=== PATIENT | female | born 1950 | race Caucasian/White ===

== ENCOUNTER 2019-04-12 22:36 | Inpatient (IN) ==
[2019-04-13] MEDS ORDERED: Naloxone 0.4 MG/ML INJ IVP PRN (06:36)
[2019-04-13] MEDS ORDERED: Acetaminophen IV 500 MG/50 ML INFUS..BTL IVPB ONE (06:39)
--- NOTE | 2019-04-13 06:44 | Internal Med History&Physical ---
Date of Encounter: 04/13/19 Time of Encounter: 05:45 Internal Medicine - H&P: HPI Chief complaint: Fall Admitted From: Hospital to Hospital Transfer Plans for Post Hospital Care: Home History of present illness: Ms. Grove is a 68 year old female with past medical history significant for osteoporosis and glaucoma who presents as hospital transfer from [facility] ER where she presented following a mechanical fall where she landed on her right side and had pain in the area of her right hip. Denies losing consciousness, striking head, or anticoagulation use. Reports she was walking and her right knee gave out causing her to fall and she landed on her right side. Following fall had immediate pain to her right hip but has been able to continue to bear weight. Pain is exacerbated with movement and improved with rest. Sending ER obtained a CT of the right hip which showed right femoral neck fracture with impacted fragments, minimal soft tissue changes along the fracture margin favoring a subacute or chronic time course recommending MRI if pain is ongoing along with a chronic appearing right-sided pubic ramus fracture and chronic L4 compression fracture. Sending ER also obtained labs including CBC, CMP, and coags which all were unremarkable. Patient currently denies any headache, numbness, tingling, chest pain, shortness breath, abdominal pain, bowel or bladder changes. Reports improvement with pain with rest and pain medications received at sending ER. Reports she follows regularly with her PCP and orthopedic provider in [place] where she lives part of the year alternating with [place]. Past Med Surg Social Fam HX - Past Medical History Medical history: glaucoma, osteoporosis Psychiatric history: no psych history - Past Surgical History Surgical History: appendectomy, cataract Additional surgical history: knee x 2. elbows x2. right wrist - Social History Smoking Status: Former smoker Alcohol use: none Drug use: none - Family History Mother Living Status: Age at : 82 Father Living Status: Age at : 65 Cause of : cardiac Internal Medicine - H&P: Meds Cholecalciferol (D-3) [Vitamin D] 10,000 unit PO QWEEK 04/13/19 [History] Dorzolamide 1 BOTH EYES BID 04/13/19 [History] Fish Oil 1,200 mg Fish Oil 1 mg PO QWEEK 04/13/19 [History] Pilocarpine 2% OPTH 1 BOTH EYES BID 09/04/19 [History] Allergy/AdvReac Type Severity Reaction Status Date / Time Penicillins Allergy Unknown See Verified 04/13/19 01:56 Comments loratadine [From Claritin-D] Allergy See Verified 04/13/19 01:54 Comments pseudoephedrine Allergy See Verified 04/13/19 01:54 [From Claritin-D] Comments meperidine [From Demerol] AdvReac Dizziness Verified 04/13/19 01:55 All Systems PM: A 10-system review of systems was performed and is negative for pertinent findings except as documented above in the HPI. - Constitutional Vitals: Temp Pulse Resp BP Pulse Ox 98.6 F 96 16 134/81 95 04/13/19 01:47 04/13/19 01:47 04/13/19 01:47 04/13/19 01:47 04/13/19 01:47 Exam: General: Alert and oriented. Skin:Normal color, no rash, no lesions. HEENT:Pupils constricted reportedly secondary to her eye drops. Cardiovascular:Normal S1 & S2, no rubs, murmurs or gallops. No JVD. Pulse regular. Lungs:Breath sounds decreased, no wheezes or crackles. Abdomen:Soft, non-tender, no rigidity. Extremities:No deformity, edema, joint swelling or clubbing. Tenderness noted to right hip, distal PMS intact. Neurological:Normal cognition and motor skills. Pulses:Carotid and radial pulses normal +2. Rest of the physical exam is non contributory. - Assessment and Plan (1) Fall Current Visit: Yes Status: Acute Assessment and plan: Reports she was walking and her right knee gave out causing her to fall and landed on her right side. Following fall had immediate pain to her right hip but has been able to continue to bear weight. Denies losing consciousness, striking head, or anticoagulation use. Sending ER obtained a CT of the right hip which showed right femoral neck fracture with impacted fragments, minimal soft tissue changes along the fracture margin favoring a subacute or chronic time course recommending MRI if pain is ongoing along with a chronic appearing right-sided pubic ramus fracture and chronic L4 compression fracture. Patient reports known previous right pubic ramus fractures from previous fall. Sending ER spoke with on-call orthopedic surgeon Dr. Graham who agreed to see patient in consult. Pain control with PRN pain medications. NPO. Fall precautions ordered. Qualifiers: Encounter type: initial encounter Qualified Code(s): W19.XXXA - Unspecified fall, initial encounter (2) Femoral neck fracture Current Visit: Yes Status: Acute Assessment and plan: Subacute or chronic according to sending ER right hip CT. Plan as stated above. Qualifiers: Encounter type: initial encounter Fracture type: closed Laterality: right Qualified Code(s): S72.001A - Fracture of unspecified part of neck of right femur, initial encounter for closed fracture (3) Compression fracture of L4 vertebra Current Visit: Yes Status: Chronic Assessment and plan: Chronic according to sending ER right hip CT. Plan as stated above. Qualifiers: Qualified Code(s): S32.040A - Wedge compression fracture of fourth lumbar vertebra, initial encounter for closed fracture (4) Pubic ramus fracture Current Visit: Yes Status: Chronic Assessment and plan: Chronic according to sending ER right hip CT. Patient reports known previous right pubic ramus fractures from previous fall. Plan as stated above. Qualifiers: Qualified Code(s): S32.599A - Other specified fracture of unspecified pubis, initial encounter for closed fracture (5) Glaucoma Current Visit: Yes Status: Chronic Assessment and plan: Continue home medications once verified. Qualifiers: Qualified Code(s): H40.9 - Unspecified glaucoma - Time Spent With Patient Total time spent is greater than 50% in coordination of care (as documented) at patient's floor/unit and/or counseling patient:
--- NOTE | 2019-04-13 07:26 | Orthopedic Consult Note ---
Date of Encounter: 04/13/19 Time of Encounter: 07:24 Assessment and Plan (1) Femoral neck fracture Current Visit: Yes Status: Acute Considerable and discussion with the patient regarding the diagnosis. She has a valgus impacted subcapital right femoral neck fracture. My recommendation is for percutaneous screw fixation to stabilize the right hip to reduce the risk of displacement. The risks discussed included but were not limited to stiffness, bleeding, infection, blood clots, damage to neurovascular structures, tendons, ligaments, and bone. Also discussed was the risk of continued symptoms and possible need for further procedures. I did discuss the anesthesia risks including stroke, heart attack, and . I did discuss the reasonable, foreseeable postoperative course with the patient. The patient did wish to proceed and consent was obtained. She is currently on the OR schedule for tomorrow. I have reviewed each of the pertinent components of this chart and any other pertinent medical component(s) including but not limited to pertinent application of the chief complaint, history of present illness, current medication, medical history, allergies, family history, medical history, surgical history, social history, review of systems, vital signs, and any other portion of the pertinent patient medical record directly or indirectly involved with this patient care that is pertinent based on my medical decision process. ANGELO Miller Qualifiers: Encounter type: initial encounter Fracture type: closed Laterality: right Qualified Code(s): S72.001A - Fracture of unspecified part of neck of right femur, initial encounter for closed fracture History of Present Illness HPI: Ms. Grove is a 68 year old female currently admitted to the hospitalist. She had a mechanical fall yesterday and was seen and [place]. She is noted to have an impacted right femoral neck fracture seen on the CT scan. She was transferred to our facility for definitive management. She complains of isolated sharp pains to the right hip, worse with use and movement and better with rest. She has been able to ambulate with pain. At baseline she is an unassisted community ambulator. She denies any other injuries. No numbness, tingling, or any other associated signs or symptoms or other modifying factors. Past Med Surg Social Fam HX - Past Medical History Medical history: glaucoma, osteoporosis Psychiatric history: no psych history - Past Surgical History Surgical History: appendectomy, cataract Additional surgical history: knee x 2. elbows x2. right wrist - Social History Smoking Status: Former smoker Alcohol use: none Drug use: none - Family History Mother Living Status: Age at : 82 Father Living Status: Age at : 65 Cause of : cardiac Medications and Allergies Cholecalciferol (D-3) [Vitamin D] 10,000 unit PO QWEEK 04/13/19 [History] Dorzolamide 1 BOTH EYES BID 04/13/19 [History] Fish Oil 1,200 mg Fish Oil 1 mg PO QWEEK 04/13/19 [History] Pilocarpine 2% OPTH 1 BOTH EYES BID 04/13/19 [History] Allergy/AdvReac Type Severity Reaction Status Date / Time Penicillins Allergy Unknown See Verified 04/13/19 01:56 Comments loratadine [From Claritin-D] Allergy See Verified 04/13/19 01:54 Comments pseudoephedrine Allergy See Verified 04/13/19 01:54 [From Claritin-D] Comments meperidine [From Demerol] AdvReac Dizziness Verified 04/13/19 01:55 All Systems Reviewed: Constitutional -The patient denies any fevers, chills, or feelings of illness Neurologic -The patient denies any numbness, tingling, or burning pains Physical Exam - Constitutional Vitals: Temp Pulse Resp BP Pulse Ox 98.6 F 96 16 134/81 95 04/13/19 01:47 04/13/19 01:47 04/13/19 01:47 04/13/19 01:47 04/13/19 01:47 Constitutional -Vitals reviewed -The patient is well developed and well nourished. -Mood is pleasant. -The patient is well groomed. Psychiatric -The patient is fully alert and oriented x 3. Respiratory: -Respiratory effort normal Abdomen: -Soft abdomen -Non tender -Non distended: Left upper extremity: -No deformities. The overlying skin is intact. No obvious signs of acute trauma. -No tenderness to palpation throughout. -No significant pain with passive motion of the shoulder, elbow, wrist, and fingers within the limits of the bed. -Able to make an "OK" sign, cross the index and long fingers, and extend the thumb. -Sensation grossly intact to light touch throughout the median, radial, and ulnar distributions. -Radial pulse is present; Fingers have good capillary refill. Right upper extremity: -No deformities. The overlying skin is intact. No obvious signs of acute trauma. -No tenderness to palpation throughout. -No significant pain with passive motion of the shoulder, elbow, wrist, and fingers within the limits of the bed. -Able to make an "OK" sign, cross the index and long fingers, and extend the thumb. -Sensation grossly intact to light touch throughout the median, radial, and ulnar distributions. -Radial pulse is present; Fingers have good capillary refill. Left lower extremity: -No deformities. The overlying skin is intact. No obvious signs of acute trauma. -No tenderness to palpation throughout. -No pain with passive motion of the hip, knee, ankle, and toes within the limits of the bed. -No pain with axial loading of the thigh. -Able to dorsiflex and plantarflex the ankle and toes. -Sensation is grossly intact to light touch throughout the sural, saphenous, superficial peroneal, and deep peroneal distributions. -Toes have good capillary refill. Right lower extremity: -No deformities. The overlying skin is intact. No obvious signs of acute trauma. -Tenderness over the right groin. -Significant right hip pain with any passive motion. -No pain with passive motion of the knee, ankle, and toes within the limits of the bed. -No pain with axial loading of the thigh. -Able to dorsiflex and plantarflex the ankle and toes. -Sensation is grossly intact to light touch throughout the sural, saphenous, superficial peroneal, and deep peroneal distributions. -Toes have good capillary refill. CT scan of the pelvis does show a subcapital valgus impacted right femoral neck fracture. Results - Labs Labs: All other labs normal.
[2019-04-13 08:00] LABS: Basophils % 0.7 %; Eosinophils # 0.1 K/mcL (0.0-0.6); Hematocrit 39.8 % (35.3-44.9); Hemoglobin 13.2 g/dL (11.5-15.4); Immature Granulocytes % 0.7 % (0-4); Lymphocytes # 0.6 K/mcL (0.6-4.6); Lymphocytes % 10.3 %; Mean Corpuscular HGB Conc 33.2 g/dL (31.6-35.5); Mean Corpuscular Hemoglobin 35.3 pg (28.0-33.3); Mean Corpuscular Volume 106.4 fL (83.0-100.0); Mean Platelet Volume 9.8 fL (9.4-12.4); Monocytes # 0.7 K/mcL (0.0-1.3); Neutrophils # 4.5 K/mcL (1.6-8.9); Platelet Count 224 K/mcL (140-400); Red Blood Count 3.74 M/mcL (3.82-4.97); Red Cell Distribution Width 13.8 % (11.5-14.5); Segmented Neutrophils % 76.3 %; White Blood Count 5.9 K/mcL (4.3-11.1)
[2019-04-13 08:23] LABS: BUN/Creatinine Ratio 34 (6-26); Blood Urea Nitrogen 20 mg/dL (8-23); Calcium 8.6 mg/dL (8.6-10.3); Carbon Dioxide 23 mEq/L (23-29); Chloride 105 mEq/L (98-107); Glucose 71 mg/dL (70-105); Osmolality,Calculated 287 (280-300); Sodium 138 mEq/L (136-145); eGFR For African Americans > 60 (> 60); eGFR For Non-African Americans > 60 (> 60)
--- NOTE | 2019-04-13 08:23 | Internal Med Progress Note ---
<RochelleCheyenne - Last Filed: 04/13/19 12:19> Hospitalist Progress Note - Encounter Date of Encounter: 04/13/19 Time of Encounter: 10:00 - Exam Vitals: Temp Pulse Resp BP Pulse Ox 99.5 F 92 14 153/91 96 04/13/19 08:41 04/13/19 08:41 04/13/19 08:41 04/13/19 08:41 04/13/19 08:41 - Assessment and Plan (1) Fall Current Visit: Yes Status: Acute (2) Femoral neck fracture Current Visit: Yes Status: Acute (3) Glaucoma Current Visit: Yes Status: Chronic (4) Compression fracture of L4 vertebra Current Visit: Yes Status: Chronic (5) Pubic ramus fracture Current Visit: Yes Status: Chronic - Time Spent with Patient Total time spent is greater than 50% in coordination of care (as documented) at patient's floor/unit and/or counseling patient: Internal Medicine: Result - Labs CBC & Chem 7: 04/13/19 07:45 04/13/19 07:45 Labs: Short CBC 04/13/19 Range/Units 07:45 WBC 5.9 (4.3-11.1) K/mcL Hgb 13.2 (11.5-15.4) g/dL Hct 39.8 (35.3-44.9) % Plt Count 224 (140-400) K/mcL Neutrophils # 4.5 (1.6-8.9) K/mcL BMP 04/13/19 07:45 Sodium 138 Potassium 4.0 Chloride 105 Carbon Dioxide 23 BUN 20 Creatinine 0.58 L Glucose 71 Calcium 8.6 - Attending Attestation I saw evaluated and examined this patient and reviewed objective data including labs and my medical decision-making was reviewed with the Resident Physician, Jax Cruz. I agree with the documented findings, disposition and treatment plan as described except to any changes set forth below. We independently had [id number] contact with the patient. Patient with right subcapital femoral neck fracture. Scheduled for surgery tomorrow. No prior cardiac history. Will obtain EKG to review for preop evaluation. Continue pain control and supportive care. <Jax Cruz I - Last Filed: 04/13/19 14:18> Hospitalist Progress Note - Encounter Date of Encounter: 04/13/19 - Subjective Interval History: Today patient is seen and examined , she is doing well , waiting for surgery tomorrow , pain in the right groin region . denies chest pain , SOB , N/V/D/C. denies fever, chills . - Exam Vitals: Temp Pulse Resp BP Pulse Ox 98.6 F 96 16 134/81 95 04/13/19 01:47 04/13/19 01:47 04/13/19 01:47 04/13/19 01:47 04/13/19 01:47 Exam: General: Alert and oriented. Skin:Normal color, no rash, no lesions. HEENT:Pupils constricted reportedly secondary to her eye drops. Cardiovascular:Normal S1 & S2, no rubs, murmurs or gallops. No JVD. Pulse regular. Lungs:Breath sounds decreased, no wheezes or crackles. Abdomen:Soft, non-tender, no rigidity. Extremities: Tenderness noted to right hip , pain with right hip motion , sensation and pulses intact in bilateral lower extremities Neurological:Normal cognition and motor skills. Pulses:Carotid and radial pulses normal +2. Rest of the physical exam is non contributory. - Assessment and Plan (1) Femoral neck fracture Current Visit: Yes Status: Acute Assessment and Plan: Patient presented with right hip pain after she fell down . CT scan of right hip : valgus impacted subcapital right femoral neck fracture. Ortho consulted and recommend : percutaneous screw fixation to stabilize the right hip to reduce the risk of displacement. patient will have surgery tomorrow EKG preoperative (2) Glaucoma Current Visit: Yes Status: Chronic Assessment and Plan: this is a chronic condition continue home med - Time Spent with Patient Total time spent is greater than 50% in coordination of care (as documented) at patient's floor/unit and/or counseling patient: Internal Medicine: Result - Labs CBC & Chem 7: 04/13/19 07:45 04/13/19 07:45 Labs: Short CBC 04/13/19 Range/Units 07:45 WBC 5.9 (4.3-11.1) K/mcL Hgb 13.2 (11.5-15.4) g/dL Hct 39.8 (35.3-44.9) % Plt Count 224 (140-400) K/mcL Neutrophils # 4.5 (1.6-8.9) K/mcL <Cheyenne Byrd - Last Filed: 04/13/19 12:19> (1) Fall Qualifiers: Encounter type: initial encounter Qualified Code(s): W19.XXXA - Unspecified fall, initial encounter (2) Femoral neck fracture Qualifiers: Encounter type: initial encounter Fracture type: closed Laterality: right Qualified Code(s): S72.001A - Fracture of unspecified part of neck of right femur, initial encounter for closed fracture (3) Glaucoma Qualifiers: Qualified Code(s): H40.9 - Unspecified glaucoma (4) Compression fracture of L4 vertebra Qualifiers: Qualified Code(s): S32.040A - Wedge compression fracture of fourth lumbar vertebra, initial encounter for closed fracture (5) Pubic ramus fracture Qualifiers: Qualified Code(s): S32.599A - Other specified fracture of unspecified pubis, initial encounter for closed fracture <Jax Cruz I - Last Filed: 04/13/19 14:18> (1) Femoral neck fracture Qualifiers: Encounter type: initial encounter Fracture type: closed Laterality: right Qualified Code(s): S72.001A - Fracture of unspecified part of neck of right femur, initial encounter for closed fracture (2) Glaucoma Qualifiers: Qualified Code(s): H40.9 - Unspecified glaucoma
[2019-04-13] MEDS ORDERED: Pilocarpine 2% OPTH 15 ML BOTTLE BOTH EYES SCH (15:00)
[2019-04-13] MEDS ORDERED: Dorzolamide OPTH 10 ML BOTTLE BOTH EYES SCH ×2 (15:00→21:00)
[2019-04-13] MEDS: traMADol 50 MG TABLET PO PRN (18:00)
[2019-04-13] MEDS: Pilocarpine 2% OPTH 15 ML BOTTLE BOTH EYES SCH (20:25)
[2019-04-13] MEDS: Dorzolamide/Timolol OPTH 10 ML BOTTLE BOTH EYES SCH (21:32)
[2019-04-14 04:46] LABS: Hematocrit 37.3 % (35.3-44.9); Hemoglobin 12.4 g/dL (11.5-15.4); Mean Corpuscular HGB Conc 33.2 g/dL (31.6-35.5); Mean Corpuscular Hemoglobin 35.7 pg (28.0-33.3); Mean Corpuscular Volume 107.5 fL (83.0-100.0); Mean Platelet Volume 9.7 fL (9.4-12.4); Platelet Count 203 K/mcL (140-400); Red Blood Count 3.47 M/mcL (3.82-4.97); Red Cell Distribution Width 13.8 % (11.5-14.5); White Blood Count 6.2 K/mcL (4.3-11.1)
[2019-04-14 05:00] LABS: INR 0.9; Prothrombin Time 10.6 Seconds (9.4-12.1)
[2019-04-14 05:06] LABS: BUN/Creatinine Ratio 42 (6-26); Blood Urea Nitrogen 24 mg/dL (8-23); Carbon Dioxide 24 mEq/L (23-29); Chloride 106 mEq/L (98-107); Glucose 104 mg/dL (70-105); Osmolality,Calculated 286 (280-300); Potassium 3.9 mEq/L (3.5-5.1); Sodium 136 mEq/L (136-145); eGFR For African Americans > 60 (> 60); eGFR For Non-African Americans > 60 (> 60)
[2019-04-14 05:16] LABS: Eosinophils # 0.4 K/mcL (0.0-0.6); Monocytes # 0.3 K/mcL (0.0-1.3); Neutrophils # 3.6 K/mcL (1.6-8.9); Platelet Estimate Normal (Normal); Reactive Lymphocytes Present (Not Present)
--- NOTE | 2019-04-14 07:48 | Orthopedics Progress Note ---
Date of Encounter: 04/14/19 Time of Encounter: 07:47 - Assessment and Plan (1) Femoral neck fracture Current Visit: Yes Status: Acute Qualifiers: Encounter type: initial encounter Fracture type: closed Laterality: right Qualified Code(s): S72.001A - Fracture of unspecified part of neck of right femur, initial encounter for closed fracture Subjective Interval history: S: Patient is seen today and has no complaints. O: Afebrile and vital signs are stable No deformities to the right hip and minimal tenderness to palpation and mild pain with axial loading of the right thigh. Neurovascularly intact distally A: Subcapital valgus impacted right femoral neck fracture P: The plan for today is percutaneous screw fixation of the right hip. The risks discussed included but were not limited to stiffness, bleeding, infection, blood clots, damage to neurovascular structures, tendons, ligaments, and bone. Also discussed was the risk of continued symptoms and possible need for further procedures. I did discuss the anesthesia risks including stroke, heart attack, and . I did discuss the reasonable, foreseeable postoperative course with the patient. The patient did wish to proceed and consent was confirmed. Objective Vital signs: Vital Signs Temp Pulse Resp BP Pulse Ox 04/14/19 07:27 98.9 F 92 15 147/81 94 04/14/19 03:00 98.7 F 83 16 122/64 93 04/13/19 22:36 98.6 F 86 17 120/63 92 04/13/19 18:42 99.3 F 106 16 128/74 98 04/13/19 16:11 98.5 F 102 14 122/71 94 04/13/19 12:42 97.8 F 107 15 151/89 97 04/13/19 08:41 99.5 F 92 14 153/91 96 Intake and Output 04/13/19 04/13/19 04/14/19 15:59 23:59 07:59 Intake Total 290 / 530 240 / 530 Output Total 200 / 200 250 / 250 Balance 90 / 330 240 / 330 -250 / -250 Intake: IV Fluids 50 / 50 Ofirmev 1,000 mg/100 ml 500 mg 50 / 50 In 50 ml @ 200 mls/hr IVPB ONCE ONE Rx#:[id number] Oral 240 / 480 240 / 480 Output: Urine 200 / 200 250 / 250 Other: # Voids 1 - Labs CBC & BMP: 04/14/19 04:30 04/14/19 04:30 Labs: Abnormal lab results RBC 3.47 M/mcL (3.82-4.97) L 04/14/19 04:30 MCV 107.5 fL (83.0-100.0) H 04/14/19 04:30 MCH 35.7 pg (28.0-33.3) H 04/14/19 04:30 Reactive Lymphocytes Present (Not Present) A 04/14/19 04:30 BUN 24 mg/dL (8-23) H 04/14/19 04:30 Creatinine 0.57 mg/dL (0.60-1.20) L 04/14/19 04:30 BUN/Creatinine Ratio 42 (6-26) H 04/14/19 04:30 Calcium 8.0 mg/dL (8.6-10.3) L 04/14/19 04:30 Consult Discharge Plan - Plan Referrals: NONE,PCP [Primary Care Provider] -
[2019-04-14] MEDS: Pilocarpine 2% OPTH 15 ML BOTTLE BOTH EYES SCH ×2 (09:10→21:07)
[2019-04-14] MEDS: Dorzolamide/Timolol OPTH 10 ML BOTTLE BOTH EYES SCH ×2 (09:10→20:37)
[2019-04-14] MEDS: traMADol 50 MG TABLET PO PRN ×2 (09:11→21:06)
[2019-04-14] MEDS ORDERED: Ondansetron 4 MG/2 ML VIAL ONE (14:21)
[2019-04-14] MEDS ORDERED: *HR* Propofol 200 MG/20 ML VIAL IVP ONE (14:21)
[2019-04-14] MEDS ORDERED: *HR* Rocuronium Bromide 50 MG/5 ML VIAL ONE (14:21)
[2019-04-14] MEDS ORDERED: *HR* Succinylcholine 200 MG/10 ML VIAL IVP ONE (14:21)
[2019-04-14] MEDS ORDERED: *HR* FentaNYL (PF) 100 MCG/2 ML VIAL ONE (14:21)
[2019-04-14] MEDS ORDERED: Lidocaine -MPF 4% 5 ML AMPUL ONE (14:21)
[2019-04-14] MEDS ORDERED: Lidocaine -MPF 2% 2 ML VIAL ONE (14:21)
[2019-04-14] MEDS ORDERED: Dexamethasone 4 MG/ML VIAL ONE (14:21)
--- NOTE | 2019-04-14 14:33 | Internal Med Progress Note ---
<Cheyenne Byrd - Last Filed: 04/14/19 14:46> Hospitalist Progress Note - Encounter Date of Encounter: 04/14/19 Time of Encounter: 09:15 - Exam Vitals: Temp Pulse Resp BP Pulse Ox 99.1 F 66 15 123/75 94 04/14/19 11:15 04/14/19 11:15 04/14/19 11:15 04/14/19 11:15 04/14/19 11:15 - Assessment and Plan (1) Fall Current Visit: Yes Status: Acute (2) Femoral neck fracture Current Visit: Yes Status: Acute (3) Glaucoma Current Visit: Yes Status: Chronic (4) Compression fracture of L4 vertebra Current Visit: Yes Status: Chronic (5) Pubic ramus fracture Current Visit: Yes Status: Chronic - Time Spent with Patient Total time spent is greater than 50% in coordination of care (as documented) at patient's floor/unit and/or counseling patient: Internal Medicine: Result - Labs CBC & Chem 7: 04/14/19 04:30 04/14/19 04:30 Labs: Short CBC 04/14/19 Range/Units 04:30 WBC 6.2 (4.3-11.1) K/mcL Hgb 12.4 (11.5-15.4) g/dL Hct 37.3 (35.3-44.9) % Plt Count 203 (140-400) K/mcL Neutrophils # 3.6 (1.6-8.9) K/mcL BMP 04/14/19 04:30 Sodium 136 Potassium 3.9 Chloride 106 Carbon Dioxide 24 BUN 24 H Creatinine 0.57 L Glucose 104 Calcium 8.0 L - ABG Interpretation ABG results: PT/INR, D-dimer PT 10.6 Seconds (9.4-12.1) 04/14/19 04:30 Consult Discharge Plan - Plan Referrals: NONE,PCP [Primary Care Provider] - - Attending Attestation I saw evaluated and examined this patient and reviewed objective data including labs and my medical decision-making was reviewed with the Resident Physician, Kaykay Daniel. I agree with the documented findings, disposition and treatment plan as described except to any changes set forth below. We independently had ansa-jx-hhod contact with the patient. Patient lying down in bed. Comfortable. Pain in right lower extremity fairly controlled. Awaiting surgery scheduled for later today. Monitor hemoglobin levels post surgery. Start DVT prophylaxis with Lovenox after surgery. <Kaykay Daniel Fani - Last Filed: 04/14/19 17:34> Hospitalist Progress Note - Encounter Date of Encounter: 04/14/19 - Subjective Interval History: Was seen and examined at bedside today. Patient denies any current pain. Patient denies any chest pain, shortness breath, bowel pain, nausea, vomiting, diarrhea. She does state that she has some fullness in her left ear. - Exam Vitals: Temp Pulse Resp BP Pulse Ox 99.1 F 66 15 123/75 94 04/14/19 11:15 04/14/19 11:15 04/14/19 11:15 04/14/19 11:15 04/14/19 11:15 Exam: General: AAO 3, no acute distress, indiscretions appropriately Head: normocephalic, atraumatic Ears: Left tympanic membrane clear, scant earwax noted Eyes: NATY, no icterus Cardio: RRR, no mumurs, rubs, or gallops Respiratory: CTAB, no wheezing, rhonchi, rales Abd: normal bowel sounds, no gaurding or rigidity Extremties: no peda edema, pulses equal bilaterally, warm Skin: warm, dry, intact - Assessment and Plan (1) Femoral neck fracture Current Visit: Yes Status: Acute Assessment and Plan: Patient presented with right hip pain after she fell down . CT scan of right hip : valgus impacted subcapital right femoral neck fracture. Ortho consulted and recommend : percutaneous screw fixation to stabilize the right hip to reduce the risk of displacement. Patient underwent pinning today with blood loss 5 mL (2) Glaucoma Current Visit: Yes Status: Chronic Assessment and Plan: this is a chronic condition continue home med (3) DVT prophylaxis Current Visit: Yes Status: Acute Assessment and Plan: Lovenox DVT Prophylaxis: Lovenox - Time Spent with Patient Total time spent is greater than 50% in coordination of care (as documented) at patient's floor/unit and/or counseling patient: Internal Medicine: Result - Labs CBC & Chem 7: 04/14/19 04:30 04/14/19 04:30 Labs: Short CBC 04/14/19 Range/Units 04:30 WBC 6.2 (4.3-11.1) K/mcL Hgb 12.4 (11.5-15.4) g/dL Hct 37.3 (35.3-44.9) % Plt Count 203 (140-400) K/mcL Neutrophils # 3.6 (1.6-8.9) K/mcL BMP 04/14/19 04:30 Sodium 136 Potassium 3.9 Chloride 106 Carbon Dioxide 24 BUN 24 H Creatinine 0.57 L Glucose 104 Calcium 8.0 L - ABG Interpretation ABG results: PT/INR, D-dimer PT 10.6 Seconds (9.4-12.1) 04/14/19 04:30 <Cheyenne Byrd - Last Filed: 04/14/19 14:46> (1) Fall Qualifiers: Encounter type: initial encounter Qualified Code(s): W19.XXXA - Unspecified fall, initial encounter (2) Femoral neck fracture Qualifiers: Encounter type: initial encounter Fracture type: closed Laterality: right Qualified Code(s): S72.001A - Fracture of unspecified part of neck of right femur, initial encounter for closed fracture (3) Glaucoma Qualifiers: Qualified Code(s): H40.9 - Unspecified glaucoma (4) Compression fracture of L4 vertebra Qualifiers: Qualified Code(s): S32.040A - Wedge compression fracture of fourth lumbar vertebra, initial encounter for closed fracture (5) Pubic ramus fracture Qualifiers: Qualified Code(s): S32.599A - Other specified fracture of unspecified pubis, initial encounter for closed fracture <Kaykay Daniel - Last Filed: 04/14/19 17:34> (1) Femoral neck fracture Qualifiers: Encounter type: initial encounter Fracture type: closed Laterality: right Qualified Code(s): S72.001A - Fracture of unspecified part of neck of right femur, initial encounter for closed fracture (2) Glaucoma Qualifiers: Qualified Code(s): H40.9 - Unspecified glaucoma
--- NOTE | 2019-04-14 14:33 | Anesthesia Evaluation PreOp ---
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 (Vertebral Compression Fracture Lumbar) Other Medical History: Other (osteoarthritis) : No Alcohol Use: none Drug use: none Medications and Allergies Cholecalciferol (D-3) [Vitamin D] 10,000 unit PO Q72H 04/13/19 [History] Dorzolamide/Timolol/Pf [Dorzolamide-Timolol 2%-0.5%] 1 drop OP BID 04/13/19 [History] Fish Oil/Dha/Epa [Fish Oil 1,200 mg Fish Oil] 1 cap PO Q72H 04/13/19 [History] Pilocarpine 2% OPTH [Isopto Carpine] 1 drop OP BID 04/13/19 [History] Allergy/AdvReac Type Severity Reaction Status Date / Time Penicillins Allergy Unknown See Verified 04/13/19 01:56 Comments loratadine [From Claritin-D] Allergy See Verified 04/13/19 01:54 Comments pseudoephedrine Allergy See Verified 04/13/19 01:54 [From Claritin-D] Comments meperidine [From Demerol] AdvReac Dizziness Verified 04/13/19 01:55 - Meds/Allergy Pre-op Review Medications Reviewed: Yes Allergies Reviewed: Yes Beta Blockers on Current Med List: No Anesthesia Results - Labs 04/14/19 04:30 04/14/19 04:30 Laboratory Tests 04/14/19 04/14/19 04/14/19 04:30 04:30 04:30 Hgb 12.4 Hct 37.3 Plt Count 203 PT 10.6 INR 0.9 Sodium 136 Potassium 3.9 BUN 24 H Creatinine 0.57 L Anesthesia Exam Vital Signs/O2 Sat/Glucose, Most Current Temp Pulse Resp BP Pulse Ox 04/14/19 11:15 99.1 F 66 15 123/75 94 Height: 5'4 Weight: 111 lbs NPO (# of Hours): MN Pain Scale: 0 - HEENT Pupil (Motor): Pupils equal, EOMI Oral Opening: Greater than 3 - UNEMPLOYMENT SPECIALIST LOC: Oriented UNEMPLOYMENT SPECIALIST Motor: Normal RUE, Normal LUE, Normal RLE, Normal LLE, Normal Face UNEMPLOYMENT SPECIALIST Sensory: Normal: RUE, LUE, RLE, LLE, Face - Cardiac Rhythm: Regular Murmur: None JVD: No Carotid Bruit: No - Pulmonary Breath Sounds: bilateral Clear Respiratory Effort: Symmetrical Anesthesia Assess/Plan ASA Score: 2 Level of consciousness: Cooperative, Oriented Anesthetic Plan: General Autologous Blood: No Monitoring Plan: Standard Monitors Recovery Plan: PACU (Discussed GA, agrees to proceed)
[2019-04-14] MEDS ORDERED: Clindamycin 900 MG/50 ML 900 MG/50 ML IV.SOLN IVPB ONE ×2 (14:42→14:44)
[2019-04-14] MEDS ORDERED: Acetaminophen IV 1,000 MG/100 ML INFUS..BTL ONE (14:44)
[2019-04-14] MEDS ORDERED: Famotidine 20 MG/2 ML VIAL ONE (14:45)
--- NOTE | 2019-04-14 15:25 | Orthopedic Operative Note ---
Date of procedure: 04/14/19 Pre-op diagnosis: Right hip fracture Post-op diagnosis: same Procedure: Procedure: Right hip pinning Estimated blood loss: 5 cc Hardware:2 Synthes 7.3 cannulated metal screws Operative procedure: The patient was brought to the operating room and placed on the operating room table. After general anesthesia was administered the well leg was place in the well leg kulkarni and the operative leg was placed in the fracture leg kulkarni. All pressure points were padded appropriately. The operative extremity was prepped and draped in the sterile surgical fashion patient received IV antibiotic prior to skin incision. Using fluoroscopic assistance a guidepin was placed through a small stab incision on the lateral aspect of the femur. Placed through the lateral femur across the fracture site into the femoral head addition of the guidepin was found to be acceptable in AP and lateral planes. A second guidepin was placed in an appropriate position and confirmed with fluoroscopy. Two 7.3 cannulated screws were placed over the guidepins, and their position was confirmed with fluoroscopy as well. Hardware as well as fracture site was well reduced and well positioned. Wound was irrigated and closed with a 2-0 Monocryl suture The patient was placed in a sterile dressing The patient was extubated and transferred to the recovery room in stable condition. Anesthesia: GETA Surgeon: Babatunde Alejo Was there an ex assistant/program director present: No Estimated blood loss (cc): 5 Condition: stable Disposition: PACU
--- NOTE | 2019-04-14 16:06 | Electrocardiograph Report ---
[address] [place] [address] Test Date: 2019-04-13 Pat Name: Angela Grove Department: 114 Room: 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
--- NOTE | 2019-04-14 16:20 | Anesthesia Evaluation Post Op ---
Date of Encounter: 04/14/19 Time of Encounter: 16:19 - Vital Signs Vital Signs: Vital Signs/O2 Sat, Most Current Temp Pulse Resp BP Pulse Ox 97.8 F 77 14 130/71 99 04/14/19 16:10 04/14/19 16:10 04/14/19 16:10 04/14/19 16:10 04/14/19 16:10 - Lungs Lungs: Clear Ascult./Percussion - Airway Airway: Non-obstructed - Cardiovascular Regular Rate - Mental Status Mental Status: Alert & Oriented, Answers Appropriately - Pain Pain Scale: 0 Pain Scale used: Numeric (1 - 10) - Nausea Vomiting Nausea Vomiting: Not Present - Hydration Hydration: Ice chips, Has not voided - Discharge PostOp Status: Transfer Patient to floor
[2019-04-14] MEDS ORDERED: *HR* OxyCODONE Immed Rel 5 MG TABLET PO PRN (16:26)
[2019-04-14] MEDS ORDERED: Naloxone 0.4 MG/ML INJ IVP PRN (16:26)
[2019-04-14] MEDS ORDERED: Sennosides 8.6 MG TABLET PO PRN (16:26)
[2019-04-14] MEDS ORDERED: *HR* OxyCODONE/APAP 5/325 TABLET PO PRN (16:26)
[2019-04-14] MEDS: Clindamycin 900 MG/50 ML 900 MG/50 ML IV.SOLN IVPB SCH (21:41)
[2019-04-14] MEDS ORDERED: Clindamycin 900 MG/50 ML 900 MG/50 ML IV.SOLN IVPB SCH (22:00)
[2019-04-15 05:19] LABS: Basophils % 0.2 %; Hemoglobin 12.6 g/dL (11.5-15.4); Immature Granulocytes % 0.7 % (0-4); Lymphocytes # 0.5 K/mcL (0.6-4.6); Lymphocytes % 9.3 %; Mean Corpuscular HGB Conc 33.2 g/dL (31.6-35.5); Mean Corpuscular Hemoglobin 35.6 pg (28.0-33.3); Mean Corpuscular Volume 107.3 fL (83.0-100.0); Monocytes # 0.8 K/mcL (0.0-1.3); Monocytes % 13.3 %; Neutrophils # 4.4 K/mcL (1.6-8.9); Platelet Count 218 K/mcL (140-400); Red Blood Count 3.54 M/mcL (3.82-4.97); Red Cell Distribution Width 13.4 % (11.5-14.5); Segmented Neutrophils % 76.5 %; White Blood Count 5.8 K/mcL (4.3-11.1)
[2019-04-15] MEDS: *HR* Enoxaparin 30 MG/0.3 ML SYRINGE SQ SCH ×2 (05:28→18:20)
[2019-04-15] MEDS: Clindamycin 900 MG/50 ML 900 MG/50 ML IV.SOLN IVPB SCH (05:29)
[2019-04-15 05:36] LABS: BUN/Creatinine Ratio 28 (6-26); Blood Urea Nitrogen 16 mg/dL (8-23); Calcium 8.1 mg/dL (8.6-10.3); Carbon Dioxide 25 mEq/L (23-29); Chloride 103 mEq/L (98-107); Glucose 186 mg/dL (70-105); Osmolality,Calculated 282 (280-300); Potassium 4.3 mEq/L (3.5-5.1); Sodium 133 mEq/L (136-145); eGFR For African Americans > 60 (> 60); eGFR For Non-African Americans > 60 (> 60)
[2019-04-15] MEDS ORDERED: *HR* Enoxaparin 30 MG/0.3 ML SYRINGE SQ SCH (06:00)
[2019-04-15] MEDS: Dorzolamide/Timolol OPTH 10 ML BOTTLE BOTH EYES SCH ×2 (08:21→21:18)
[2019-04-15] MEDS: Pilocarpine 2% OPTH 15 ML BOTTLE BOTH EYES SCH ×2 (08:21→22:07)
[2019-04-15] MEDS: Cholecalciferol (D-3) 1,000 UNIT (25MCG) TABLET PO SCH (08:21)
--- NOTE | 2019-04-15 10:34 | Internal Med Progress Note ---
<Jax Cruz I - Last Filed: 04/15/19 13:29> Hospitalist Progress Note - Encounter Date of Encounter: 04/15/19 Time of Encounter: 10:00 - Subjective Interval History: Today Patient is seen and examined . She is doing well . pain is under control . she passed gases but no bowel motion yet , she is able to eat without Nausea or vomiting . No fever or chills . no chest pain or SOB - Exam Vitals: Temp Pulse Resp BP Pulse Ox 98.9 F 90 15 129/73 95 04/15/19 06:32 04/15/19 06:32 04/15/19 06:32 04/15/19 06:32 04/15/19 06:32 Exam: General: AAO 3, no acute distress, indiscretions appropriately Head: normocephalic, atraumatic Ears: Left tympanic membrane clear, scant earwax noted Eyes: NATY, no icterus Cardio: RRR, no mumurs, rubs, or gallops Respiratory: CTAB, no wheezing, rhonchi, rales Abd: normal bowel sounds, no gaurding or rigidity Extremties: no peda edema, pulses equal bilaterally, warm Skin: warm, dry, intact - Assessment and Plan (1) Femoral neck fracture Current Visit: Yes Status: Acute Assessment and Plan: Patient presented with right hip pain after she fell down . CT scan of right hip : valgus impacted subcapital right femoral neck fracture. Ortho consulted and recommend : percutaneous screw fixation to stabilize the right hip to reduce the risk of displacement. Patient underwent Right hip pinning yesterday and she is doing well post operatively (2) Glaucoma Current Visit: Yes Status: Chronic Assessment and Plan: continue home med - Time Spent with Patient Total time spent is greater than 50% in coordination of care (as documented) at patient's floor/unit and/or counseling patient: Internal Medicine: Result - Labs CBC & Chem 7: 04/15/19 04:46 04/15/19 04:46 Labs: Short CBC 04/15/19 Range/Units 04:46 WBC 5.8 (4.3-11.1) K/mcL Hgb 12.6 (11.5-15.4) g/dL Hct 38.0 (35.3-44.9) % Plt Count 218 (140-400) K/mcL Neutrophils # 4.4 (1.6-8.9) K/mcL BMP 04/15/19 04:46 Sodium 133 L Potassium 4.3 Chloride 103 Carbon Dioxide 25 BUN 16 Creatinine 0.58 L Glucose 186 H Calcium 8.1 L - ABG Interpretation ABG results: PT/INR, D-dimer PT 10.6 Seconds (9.4-12.1) 04/14/19 04:30 - Impressions Impressions Hip X-Ray 04/14/19 14:50 IMPRESSION: Status post screw fixation of a right femoral neck fracture without complication. D/ / Jhonatan Christianson MD / Jhonatan Christianson MD Interpreting Provider: Jhonatan Christianson MD Fluoroscopy 04/14/19 15:02 IMPRESSION: C-arm provided for fixation of the right femur. Refer to the intraoperative report for full detail. D/ / 04/14/2019 15:36:31 Corinna Nicholson MD / [email or web address] Interpreting Provider: Corinna Nicholson MD Consult Discharge Plan - Plan Referrals: NONE,PCP [Primary Care Provider] - <Cheyenne Byrd - Last Filed: 04/15/19 13:48> Hospitalist Progress Note - Encounter Date of Encounter: 04/15/19 Time of Encounter: 09:25 - Exam Vitals: Temp Pulse Resp BP Pulse Ox 99.0 F 77 16 117/77 95 04/15/19 11:35 04/15/19 11:35 04/15/19 11:35 04/15/19 11:35 04/15/19 11:35 - Assessment and Plan (1) Fall Current Visit: Yes Status: Acute (2) Femoral neck fracture Current Visit: Yes Status: Acute (3) Glaucoma Current Visit: Yes Status: Chronic (4) Compression fracture of L4 vertebra Current Visit: Yes Status: Chronic (5) Pubic ramus fracture Current Visit: Yes Status: Chronic - Time Spent with Patient Total time spent is greater than 50% in coordination of care (as documented) at patient's floor/unit and/or counseling patient: Internal Medicine: Result - Labs CBC & Chem 7: 04/15/19 04:46 04/15/19 04:46 Labs: Short CBC 04/15/19 Range/Units 04:46 WBC 5.8 (4.3-11.1) K/mcL Hgb 12.6 (11.5-15.4) g/dL Hct 38.0 (35.3-44.9) % Plt Count 218 (140-400) K/mcL Neutrophils # 4.4 (1.6-8.9) K/mcL BMP 04/15/19 04:46 Sodium 133 L Potassium 4.3 Chloride 103 Carbon Dioxide 25 BUN 16 Creatinine 0.58 L Glucose 186 H Calcium 8.1 L - ABG Interpretation ABG results: PT/INR, D-dimer PT 10.6 Seconds (9.4-12.1) 04/14/19 04:30 - Impressions Impressions Hip X-Ray 04/14/19 14:50 IMPRESSION: Status post screw fixation of a right femoral neck fracture without complication. D/ / Jhonatan Christianson MD / Jhonatan Christianson MD Interpreting Provider: Jhonatan Christianson MD Fluoroscopy 04/14/19 15:02 IMPRESSION: C-arm provided for fixation of the right femur. Refer to the intraoperative report for full detail. D/ / 04/14/2019 15:36:31 Corinna Nicholson MD / juan jose Interpreting Provider: Corinna Nicholson MD - Attending Attestation I saw evaluated and examined this patient and reviewed objective data including labs and my medical decision-making was reviewed with the Resident Physician, Jax Martinez. I agree with the documented findings, disposition and treatment plan as described except to any changes set forth below. We independently had itlo-pm-[id number] contact with the patient. Patient underwent surgery yesterday with right hip pinning. No complications postoperatively. Doing well overall. Pain is well controlled. Working continue PTOT in the meantime. Hemoglobin levels are stable. Blood sugars are elevated this morning. We will check A1c level. <Jax Cruz Sachi - Last Filed: 04/15/19 13:29> (1) Femoral neck fracture Qualifiers: Encounter type: initial encounter Fracture type: closed Laterality: right Qualified Code(s): S72.001A - Fracture of unspecified part of neck of right femur, initial encounter for closed fracture (2) Glaucoma Qualifiers: Qualified Code(s): H40.9 - Unspecified glaucoma <Cheyenne Byrd - Last Filed: 04/15/19 13:48> (1) Fall Qualifiers: Encounter type: initial encounter Qualified Code(s): W19.XXXA - Unspecified fall, initial encounter (2) Femoral neck fracture Qualifiers: Encounter type: initial encounter Fracture type: closed Laterality: right Qualified Code(s): S72.001A - Fracture of unspecified part of neck of right femur, initial encounter for closed fracture (3) Glaucoma Qualifiers: Qualified Code(s): H40.9 - Unspecified glaucoma (4) Compression fracture of L4 vertebra Qualifiers: Qualified Code(s): S32.040A - Wedge compression fracture of fourth lumbar vertebra, initial encounter for closed fracture (5) Pubic ramus fracture Qualifiers: Qualified Code(s): S32.599A - Other specified fracture of unspecified pubis, initial encounter for closed fracture
[2019-04-15] MEDS: traMADol 50 MG TABLET PO PRN (20:21)
[2019-04-16] MEDS: *HR* Enoxaparin 30 MG/0.3 ML SYRINGE SQ SCH ×2 (05:30→17:01)
[2019-04-16 07:13] LABS: Basophils % 0.7 %; Eosinophils # 0.1 K/mcL (0.0-0.6); Eosinophils % 1.9 %; Hematocrit 38.2 % (35.3-44.9); Hemoglobin 12.6 g/dL (11.5-15.4); Immature Granulocytes % 0.7 % (0-4); Lymphocytes # 1.9 K/mcL (0.6-4.6); Lymphocytes % 33.7 %; Mean Corpuscular Volume 106.1 fL (83.0-100.0); Mean Platelet Volume 10.4 fL (9.4-12.4); Monocytes # 0.8 K/mcL (0.0-1.3); Monocytes % 13.8 %; Neutrophils # 2.8 K/mcL (1.6-8.9); Platelet Count 224 K/mcL (140-400); Red Cell Distribution Width 13.7 % (11.5-14.5); Segmented Neutrophils % 49.2 %; White Blood Count 5.7 K/mcL (4.3-11.1)
[2019-04-16 07:31] LABS: BUN/Creatinine Ratio 29 (6-26); Blood Urea Nitrogen 19 mg/dL (8-23); Calcium 8.6 mg/dL (8.6-10.3); Carbon Dioxide 27 mEq/L (23-29); Chloride 105 mEq/L (98-107); Glucose 98 mg/dL (70-105); Osmolality,Calculated 288 (280-300); Potassium 3.8 mEq/L (3.5-5.1); Sodium 138 mEq/L (136-145); eGFR For African Americans > 60 (> 60); eGFR For Non-African Americans > 60 (> 60)
[2019-04-16] MEDS: Dorzolamide/Timolol OPTH 10 ML BOTTLE BOTH EYES SCH ×2 (07:58→21:25)
[2019-04-16] MEDS: Cholecalciferol (D-3) 1,000 UNIT (25MCG) TABLET PO SCH (07:58)
[2019-04-16] MEDS: Pilocarpine 2% OPTH 15 ML BOTTLE BOTH EYES SCH ×2 (07:58→21:23)
--- NOTE | 2019-04-16 10:48 | Internal Med Progress Note ---
<Cheyenne Byrd - Last Filed: 04/16/19 11:52> Hospitalist Progress Note - Encounter Date of Encounter: 04/16/19 Time of Encounter: 09:30 - Exam Vitals: Temp Pulse Resp BP Pulse Ox 98.8 F 72 18 114/68 94 04/16/19 11:20 04/16/19 11:20 04/16/19 11:20 04/16/19 11:20 04/16/19 11:20 - Assessment and Plan (1) Fall Current Visit: Yes Status: Acute (2) Femoral neck fracture Current Visit: Yes Status: Acute (3) Glaucoma Current Visit: Yes Status: Chronic (4) Compression fracture of L4 vertebra Current Visit: Yes Status: Chronic (5) Pubic ramus fracture Current Visit: Yes Status: Chronic - Time Spent with Patient Total time spent is greater than 50% in coordination of care (as documented) at patient's floor/unit and/or counseling patient: Internal Medicine: Result - Labs CBC & Chem 7: 04/16/19 06:06 04/16/19 06:06 Labs: Short CBC 04/16/19 Range/Units 06:06 WBC 5.7 (4.3-11.1) K/mcL Hgb 12.6 (11.5-15.4) g/dL Hct 38.2 (35.3-44.9) % Plt Count 224 (140-400) K/mcL Neutrophils # 2.8 (1.6-8.9) K/mcL BMP 04/16/19 06:06 Sodium 138 Potassium 3.8 Chloride 105 Carbon Dioxide 27 BUN 19 Creatinine 0.65 Glucose 98 Calcium 8.6 - ABG Interpretation ABG results: PT/INR, D-dimer PT 10.6 Seconds (9.4-12.1) 04/14/19 04:30 Consult Discharge Plan - Plan Referrals: NONE,PCP [Primary Care Provider] - - Attending Attestation I saw evaluated and examined this patient and reviewed objective data including labs and my medical decision-making was reviewed with the Resident Physician, Jax Cruz. I agree with the documented findings, disposition and treatment plan as described except to any changes set forth below. We independently had fiad-gl-mqbs contact with the patient. Patient Continues to do well. Pain is well controlled. Her blood sugar was elevated yesterday morning but has since improved. Has had bowel movements. Continues to work with physical therapy. Awaiting placement to skilled rehabilitation tomorrow. Continue anticoagulation for DVT prophylaxis. Low risk for complications <Jax Cruz Sachi - Last Filed: 04/16/19 13:43> Hospitalist Progress Note - Encounter Date of Encounter: 04/16/19 - Subjective Interval History: Today Patient is seen and examined . She is doing well . pain is under control . she had bowel movement , she is able to eat without Nausea or vomiting . No fever or chills . no chest pain or SOB - Exam Vitals: Temp Pulse Resp BP Pulse Ox 98.7 F 67 18 129/81 98 04/16/19 07:40 04/16/19 07:40 04/16/19 07:40 04/16/19 07:40 04/16/19 07:40 Exam: General: AAO 3, no acute distress, indiscretions appropriately Head: normocephalic, atraumatic Ears: Left tympanic membrane clear, scant earwax noted Eyes: NATY, no icterus Cardio: RRR, no mumurs, rubs, or gallops Respiratory: CTAB, no wheezing, rhonchi, rales Abd: normal bowel sounds, no gaurding or rigidity Extremties: no peda edema, pulses equal bilaterally, warm Skin: warm, dry, intact - Assessment and Plan (1) Femoral neck fracture Current Visit: Yes Status: Acute Assessment and Plan: post operative day 3 of right hip pinning . clinically and vitals stable Patient presented with right hip pain after she fell down . CT scan of right hip : valgus impacted subcapital right femoral neck fracture. Ortho consulted and recommend : percutaneous screw fixation to stabilize the right hip to reduce the risk of displacement. (2) Glaucoma Current Visit: Yes Status: Chronic Assessment and Plan: continue home med - Time Spent with Patient Total time spent is greater than 50% in coordination of care (as documented) at patient's floor/unit and/or counseling patient: Internal Medicine: Result - Labs CBC & Chem 7: 04/16/19 06:06 04/16/19 06:06 Labs: Short CBC 04/16/19 Range/Units 06:06 WBC 5.7 (4.3-11.1) K/mcL Hgb 12.6 (11.5-15.4) g/dL Hct 38.2 (35.3-44.9) % Plt Count 224 (140-400) K/mcL Neutrophils # 2.8 (1.6-8.9) K/mcL BMP 04/16/19 06:06 Sodium 138 Potassium 3.8 Chloride 105 Carbon Dioxide 27 BUN 19 Creatinine 0.65 Glucose 98 Calcium 8.6 - ABG Interpretation ABG results: PT/INR, D-dimer PT 10.6 Seconds (9.4-12.1) 04/14/19 04:30 ____ <Cheyenne Byrd - Last Filed: 04/16/19 11:52> (1) Fall Qualifiers: Encounter type: initial encounter Qualified Code(s): W19.XXXA - Unspecified fall, initial encounter (2) Femoral neck fracture Qualifiers: Encounter type: initial encounter Fracture type: closed Laterality: right Qualified Code(s): S72.001A - Fracture of unspecified part of neck of right femur, initial encounter for closed fracture (3) Glaucoma Qualifiers: Qualified Code(s): H40.9 - Unspecified glaucoma (4) Compression fracture of L4 vertebra Qualifiers: Qualified Code(s): S32.040A - Wedge compression fracture of fourth lumbar vertebra, initial encounter for closed fracture (5) Pubic ramus fracture Qualifiers: Qualified Code(s): S32.599A - Other specified fracture of unspecified pubis, initial encounter for closed fracture <Jax Cruz I - Last Filed: 04/16/19 13:43> (1) Femoral neck fracture Qualifiers: Encounter type: initial encounter Fracture type: closed Laterality: right Qualified Code(s): S72.001A - Fracture of unspecified part of neck of right femur, initial encounter for closed fracture (2) Glaucoma Qualifiers: Qualified Code(s): H40.9 - Unspecified glaucoma
[2019-04-16 10:58] LABS: Estimated Average Glucose 120 mg/dl
--- NOTE | 2019-04-16 15:52 | Orthopedics Progress Note ---
Date of Encounter: 04/16/19 Time of Encounter: 15:52 Subjective Principal diagnosis: s/p R hip pinning Interval history: Patient is comfortable without complaints Right hip: Dressing is clean dry intact with mild sanguinous spotting Bilateral calves are soft and nontender. Grossly neurovascular intact distally. Patient's transferring and ambulating well with walker. Assessment: Postoperative day #2 doing well Plan: Continue OT/PT Continue DVT prophylaxis Discharge tomorrow to rehabilitation Follow-up at [facility] in 2 weeks Objective Vital signs: Vital Signs Temp Pulse Resp BP Pulse Ox 04/16/19 15:07 98.8 F 85 15 111/63 100 04/16/19 11:20 98.8 F 72 18 114/68 94 04/16/19 07:40 98.7 F 67 18 129/81 98 04/16/19 03:46 97.8 F 69 20 104/63 93 04/15/19 22:22 98.7 F 65 20 114/70 97 04/15/19 19:14 98.8 F 97 16 124/71 96 Intake and Output 04/15/19 04/16/19 04/16/19 23:59 07:59 15:59 Intake Total 150 / 300 0 / 0 Balance 150 / 50 0 / 0 Intake: Oral 150 / 250 0 / 0 Other: # Voids 1 1 1 # Bowel Movements 1 Weight 53.5 kg Patient Weight 04/16/19 23:59 Weight 53.5 kg - Labs CBC & BMP: 04/16/19 06:06 04/16/19 06:06 Labs: Abnormal lab results RBC 3.60 M/mcL (3.82-4.97) L 04/16/19 06:06 MCV 106.1 fL (83.0-100.0) H 04/16/19 06:06 MCH 35.0 pg (28.0-33.3) H 04/16/19 06:06 Lymphocytes # 0.5 K/mcL (0.6-4.6) L 04/15/19 04:46 Reactive Lymphocytes Present (Not Present) A 04/14/19 04:30 Sodium 133 mEq/L (136-145) L 04/15/19 04:46 BUN 24 mg/dL (8-23) H 04/14/19 04:30 Creatinine 0.58 mg/dL (0.60-1.20) L 04/15/19 04:46 BUN/Creatinine Ratio 29 (6-26) H 04/16/19 06:06 Glucose 186 mg/dL (70-105) H 04/15/19 04:46 Hemoglobin A1c 5.8 % (-5.6) H 04/16/19 06:06 Calcium 8.1 mg/dL (8.6-10.3) L 04/15/19 04:46 Consult Discharge Plan - Plan Referrals: NONE,PCP [Primary Care Provider] -
[2019-04-17] MEDS: *HR* Enoxaparin 30 MG/0.3 ML SYRINGE SQ SCH (06:07)
[2019-04-17] MEDS: Pilocarpine 2% OPTH 15 ML BOTTLE BOTH EYES SCH (07:17)
[2019-04-17] MEDS: Dorzolamide/Timolol OPTH 10 ML BOTTLE BOTH EYES SCH (07:17)
[2019-04-17] MEDS: Cholecalciferol (D-3) 1,000 UNIT (25MCG) TABLET PO SCH (07:17)
[2019-04-17 07:57] VITALS: BP 126/78
--- NOTE | 2019-04-17 08:07 | Discharge Summary ---
<Jax Cruz I - Last Filed: 04/17/19 08:10> - NOTES TO OUTPATIENT PROVIDER Notes to Outpatient Provider: Patient with right subcapital femoral neck fracture. Underwent percutaneous screw fixation to stabilize the right hip to reduce the risk of displacement.. patient doing well postoperative . will continue levonox for 3 weeks , merly and tramadol Date of Encounter: 04/17/19 Time of Encounter: 08:10 - Discharge Diagnosis (1) Femoral neck fracture Priority: Primary Status: Acute Qualifiers: Encounter type: initial encounter Fracture type: closed Laterality: right Qualified Code(s): S72.001A - Fracture of unspecified part of neck of right femur, initial encounter for closed fracture (2) Glaucoma Priority: Secondary Status: Chronic Qualifiers: Qualified Code(s): H40.9 - Unspecified glaucoma Hospital course: Ms. Grove is a 68 year old female Discharge discussed with: patient, family, nurse, social work - Time Spent with Patient Total time spent providing and/or coordinating discharge services: - Discharge Medications Prescriptions: New Enoxaparin [Lovenox] 30 mg SQ Q12HCO 21 Days #42 syringe Sennosides [Senna] 8.6 mg PO TID PRN 10 Days #30 tablet PRN Reason: constipation Tramadol HCl [Ultram] 50 mg PO QID PRN 10 Days #40 tab PRN Reason: Pain Continued Cholecalciferol (D-3) [Vitamin D] 10,000 unit PO Q72H Fish Oil/Dha/Epa [Fish Oil 1,200 mg Fish Oil] 1 cap PO Q72H Dorzolamide/Timolol/Pf [Dorzolamide-Timolol 2%-0.5%] 1 drop OP BID Pilocarpine 2% OPTH [Isopto Carpine] 1 drop OP BID Home Medications: Cholecalciferol (D-3) [Vitamin D] 10,000 unit PO Q72H 04/13/19 [History] Dorzolamide/Timolol/Pf [Dorzolamide-Timolol 2%-0.5%] 1 drop OP BID 04/13/19 [History] Fish Oil/Dha/Epa [Fish Oil 1,200 mg Fish Oil] 1 cap PO Q72H 04/13/19 [History] Pilocarpine 2% OPTH [Isopto Carpine] 1 drop OP BID 04/13/19 [History] Enoxaparin [Lovenox] 30 mg SQ Q12HCO 21 Days #42 syringe 04/17/19 [Rx] Sennosides [Senna] 8.6 mg PO TID PRN 10 Days #30 tablet 04/17/19 [Rx] Tramadol HCl [Ultram] 50 mg PO QID PRN 10 Days #40 tab 04/17/19 [Rx] Allergies/Adverse Reactions: Allergy/AdvReac Type Severity Reaction Status Date / Time Penicillins Allergy Unknown See Verified 04/13/19 01:56 Comments loratadine [From Claritin-D] Allergy See Verified 04/13/19 01:54 Comments pseudoephedrine Allergy See Verified 04/13/19 01:54 [From Claritin-D] Comments meperidine [From Demerol] AdvReac Dizziness Verified 04/13/19 01:55 Date of admission: 04/14/19 15:08 Primary care physician: PCP NONE Consults: 04/13/19 02:29 Consult to Pastoral Services [CONS] Routine Comment: 04/13/19 06:37 Consult to Orthopedic Surgery [CONS] Routine Consulting Provider: [facility] Reason for Consult: Transfer from [facility] ER following fall. CT of right hip shows right femoral neck fracture with impacted fragments, minimal soft tissue changes along the fracture margin favor subacute or chronic time course and chronic appearing right-sided pubic ramus fracture. Sending ER consult with Dr. Graham who agreed to see in consult. Call Completed: Yes 04/14/19 16:26 Consult to Occupational Therapy [CONS] Routine Comment: Evaluate, develop and implement POC Reason for Consult: post hip surgery Does patient have active BEDREST order?: No Is patient medically & hemodynamically stable?: Yes Patient assessed for mobility or mobilized this visit?: Yes Consult to Orthopedic Navigator [CONS] [CONS] Routine Consult to Physical Therapy [CONS] Routine Comment: Evaluate, develop and implement POC Reason for Consult: post hip surgery Does patient have active BEDREST order?: No Is patient medically & hemodynamically stable?: Yes Patient assessed for mobility or mobilized this visit?: Yes Consult to Ways Operator [CONS] Routine Reason for SW Consult: post -op hip fracture RT Post Op Consult [CONS] Routine - Constitutional Vitals: Temp Pulse Resp BP Pulse Ox 98.4 F 82 16 126/78 98 04/17/19 06:25 04/17/19 06:25 04/17/19 06:25 04/17/19 06:04/17/19 06:25 Exam: General: Alert and oriented. Skin:Normal color, no rash, no lesions. HEENT:Pupils constricted reportedly secondary to her eye drops. Cardiovascular:Normal S1 & S2, no rubs, murmurs or gallops. No JVD. Pulse regular. Lungs:Breath sounds decreased, no wheezes or crackles. Abdomen:Soft, non-tender, no rigidity. Extremities:No deformity, edema, joint swelling or clubbing. Tenderness noted to right hip, distal PMS intact. Neurological:Normal cognition and motor skills. Pulses:Carotid and radial pulses normal +2. Rest of the physical exam is non contributory. - Patient Status Disposition: Transfer Inpatient Rehab Fac Condition: Good Overall status at discharge: patient is progressing back to baseline - Discharge Instructions Follow Up With: NONE,PCP [Primary Care Provider] - Additional Instructions: Discharge Instructions: Total Hip Replacement Please call [facility] ([phone]), your Primary Care Physician, or report to the Emergency Room if you have any of the following symptoms: Nausea, vomiting, fever greater that 101.5, swelling, chest pain, shortness of breath, increased pain/redness/drainage/odor for your incision site, numbness/tingling, or any other concerning symptoms. ACTIVITY:Weight-bearing as tolerated for 8 weeks with hip dislocation precautions that physical therapy taught you. You may progress as tolerated under the guidance of your physical therapist. You do not need to sleep with a pillow between your legs. You can also seep on the operative side or on your stomach. Incentive Spirometer 10 times an hour. MEDICATIONS: Upon discharge resume your home medications. Take all the medications as prescribed. Take a stool softener if taking narcotic pain medications. Stool softeners are only effective if you drink enough fluids. Drink 6-8 glass of water or fluids a day, unless this is not allowed for another health problem. Despite using stool softeners, if you haven't had a bowel movement in 3 days, please switch to a gentle laxative. Gentle laxatives are sold over the counter. You should have a bowel movement within 24 hours, if not call the office. You will be discharged from the hospital with a prescription for pain medication. You are encouraged to decrease the use of narcotic pain medication as tolerated. Should you require a refill, please call the office. [facility] prescribes narcotic pain medication for only 4-6 weeks after surgery. If you require pain medication beyond this time period, you may be referred to your Primary Care Physician or to the Pain Clinic for further evaluation. Plan ahead for refills on pain medication as many narcotics either need to be picked up at the office or mailed. It is best to call 48-72 hours in advance of needing a prescription refill so you don't run out of medication. To help control the post-operative pain, you may take NSAIDs (Aleve,Advil, Motrin, ibuprofen, naprosyn) or Tylenol as prescribed on the bottle in addition to the pain medication. ANTICOAGULATION (blood thinners): Continue your Aspirin, Lovenox or Coumadin as prescribed to help prevent a blood clot in the leg or in the lungs. As long as your incision remains dry and you tolerate the NSAIDs (Aleve, Advil, Motrin, Ibuprofen, Naprosyn), it is OK to use the NSAIDS while you are taking your anticoagulation medication. Should your incision start to drain, stop the NSAID and contact our office. Common symptoms of blood clot in the legs include: localized pain, swelling, calf tenderness, redness or discoloration of the skin. Blood clot in the lung symptoms include: shortness of breath, rapid pulse, sweating, and chest pain that worsens with deep breathing, coughing up blood, lightheadedness, feelings of anxiety. If you experience any of these symptoms notify your physician immediately, go to the emergency room, or if having trouble breathing, call 911. WOUND CARE: Leave the dressing on for 7 to 10days. You may change the dressing if it is saturated greater than 50%. Do not get the dressing wet at anytime. Wash your hands with antibacterial soap, rinse and dry prior to any wound care. If you have tato the visiting nurse or rehab facility can remove the stapes 10-14 days after surgery and place steri-strips across the wound. Leave the steri-strips in place until they fall off on their own. You may let water from the shower run on top of the steri-strips. If you do not have a visiting nurse or rehab facility, you will need to return to the office at 10-14 days for the tato to be removed. If you have itching or redness around the dressing call the office. FOLLOW-UP: Please follow up with your surgeon in the orthopedic clinic in 6 w eeks from the day of surgery. If you have tato that need to be removed, you will need to come back to the office in 10-14 days from the day of surgery. - Diet and Activity Activity: as per physical therapy Diet: advance to your usual diet <Cheyenne Byrd - Last Filed: 04/17/19 10:34> Date of Encounter: 04/17/19 Time of Encounter: 08:40 - Discharge Diagnosis (1) Fall Status: Acute Qualifiers: Encounter type: initial encounter Qualified Code(s): W19.XXXA - Unspecified fall, initial encounter (2) Femoral neck fracture Status: Acute Qualifiers: Encounter type: initial encounter Fracture type: closed Laterality: right Qualified Code(s): S72.001A - Fracture of unspecified part of neck of right femur, initial encounter for closed fracture (3) Glaucoma Status: Chronic Qualifiers: Qualified Code(s): H40.9 - Unspecified glaucoma (4) Compression fracture of L4 vertebra Status: Chronic Qualifiers: Qualified Code(s): S32.040A - Wedge compression fracture of fourth lumbar vertebra, initial encounter for closed fracture (5) Pubic ramus fracture Status: Chronic Qualifiers: Qualified Code(s): S32.599A - Other specified fracture of unspecified pubis, initial encounter for closed fracture Hospital course: Ms. Grove is a 68 year old female - Time Spent with Patient Total time spent providing and/or coordinating discharge services: Date of admission: 04/14/19 15:08 Primary care physician: PCP NONE Consults: 04/13/19 02:29 Consult to Pastoral Services [CONS] Routine Comment: 04/13/19 06:37 Consult to Orthopedic Surgery [CONS] Routine Consulting Provider: [facility] Reason for Consult: Transfer from [facility] following fall. CT of right hip shows right femoral neck fracture with impacted fragments, minimal soft tissue changes along the fracture margin favor subacute or chronic time course and chronic appearing right-sided pubic ramus fracture. Sending ER consult with Dr. Graham who agreed to see in consult. Call Completed: Yes 04/14/19 16:26 Consult to Occupational Therapy [CONS] Routine Comment: Evaluate, develop and implement POC Reason for Consult: post hip surgery Does patient have active BEDREST order?: No Is patient medically & hemodynamically stable?: Yes Patient assessed for mobility or mobilized this visit?: Yes Consult to Orthopedic Navigator [CONS] [CONS] Routine Consult to Physical Therapy [CONS] Routine Comment: Evaluate, develop and implement POC Reason for Consult: post hip surgery Does patient have active BEDREST order?: No Is patient medically & hemodynamically stable?: Yes Patient assessed for mobility or mobilized this visit?: Yes Consult to Ways Operator [CONS] Routine Reason for SW Consult: post -op hip fracture RT Post Op Consult [CONS] Routine - Constitutional Vitals: Temp Pulse Resp BP Pulse Ox 98.4 F 82 16 126/78 98 04/17/19 06:25 04/17/19 06:25 04/17/19 06:25 04/17/19 06:25 04/17/19 06:25 - Attending Attestation I saw evaluated and examined this patient and reviewed objective data including labs and my medical decision-making was reviewed with the Resident Physician, Jax Cruz. I agree with the documented findings, disposition and discharge plan as described except to any changes set forth below. We independently had [id number] contact with the patient. Patient was hospitalized here with right-sided subcapital femoral neck fracture. Underwent pinning and has been doing well. She will be discharged today to skilled rehabilitation. Follow up with orthopedics after discharge. She will be on DVT prophylaxis with Lovenox subcutaneous. Time spent on discharge: 5 min
--- NOTE | 2019-04-17 08:24 | Physician Discharge Referral ---
ExtendedCare Referral Info Transfer To: rehab - Diagnosis (1) Femoral neck fracture Priority: Primary Status: Acute (2) Glaucoma Priority: Secondary Status: Chronic - Transfer Medications Prescriptions: Enoxaparin [Lovenox] 30 mg SQ Q12HCO 21 Days #42 syringe Sennosides [Senna] 8.6 mg PO TID PRN 10 Days #30 tablet PRN Reason: constipation Tramadol HCl [Ultram] 50 mg PO QID PRN 10 Days #40 tab PRN Reason: Pain Home Medications: Cholecalciferol (D-3) [Vitamin D] 10,000 unit PO Q72H 04/13/19 [History] Dorzolamide/Timolol/Pf [Dorzolamide-Timolol 2%-0.5%] 1 drop OP BID 04/13/19 [History] Fish Oil/Dha/Epa [Fish Oil 1,200 mg Fish Oil] 1 cap PO Q72H 04/13/19 [History] Pilocarpine 2% OPTH [Isopto Carpine] 1 drop OP BID 04/13/19 [History] Enoxaparin [Lovenox] 30 mg SQ Q12HCO 21 Days #42 syringe 04/17/19 [Rx] Sennosides [Senna] 8.6 mg PO TID PRN 10 Days #30 tablet 04/17/19 [Rx] Tramadol HCl [Ultram] 50 mg PO QID PRN 10 Days #40 tab 04/17/19 [Rx] Allergies/Adverse Reactions: Allergy/AdvReac Type Severity Reaction Status Date / Time Penicillins Allergy Unknown See Verified 04/13/19 01:56 Comments loratadine [From Claritin-D] Allergy See Verified 04/13/19 01:54 Comments pseudoephedrine Allergy See Verified 04/13/19 01:54 [From Claritin-D] Comments meperidine [From Demerol] AdvReac Dizziness Verified 04/13/19 01:55 - Respiratory Orders None Smoking Cessation: Smoking cessation has been advised. For more information, call the [place] Tobacco Quit Line at 8-843-KNVI-NOW. - Advance Directives Code Status: Full Code - Rehabiliation Orders Rehab Orders: ROM Exercises, Evaluation for Physical Therapy, Evaluation for Occupational Therapy - Diet Orders Regular CERTIFICATION: I certify that the transfer of the above named patient to an Extended Care Facility is necessary for the continuing treatment of the diagnosis listed. The above information is true and accurate reflection of patient's current condition. Confidential - Redisclosure prohibited without a patient's written consent.
[2019-04-17] MEDS: traMADol 50 MG TABLET PO PRN (09:23)
== END 2019-04-17 11:15 ==
LOC: 3NENU → SUATTDRO 04-14 15:08
PROVIDERS: ADMIT Family Medicine; ATTEND Internal Medicine